=== PATIENT | female | born 1995 | race African-American/Black ===

== ENCOUNTER 2019-09-21 12:23 | Emergency (ER) | payer MEDICAID ==
[~2019-09-21] VITALS: Ht 152.4 cm; Wt 55.5 kg
[2019-09-21 12:40] VITALS: BP 116/58; TEMP 97.7
[2019-09-21 13:55] LABS: COLLECTION METHOD CLEAN CATCH
[2019-09-21 14:11] LABS: MUCOUS Present /lpf; PH 7 (5-8); SQUAMOUS EPITHELIAL 0-2 /hpf; URINE APPEARANCE Clear; URINE BACTERIA Rare /hpf; URINE BILIRUBIN Negative (NEGATIVE); URINE BLOOD Negative (NEGATIVE); URINE COLOR Yellow; URINE GLUCOSE Negative (NEGATIVE); URINE KETONE Trace (NEGATIVE); URINE LEUKOCYTE ESTERASE Negative (NEGATIVE); URINE NITRATE Negative (NEGATIVE); URINE PROTEIN(semi-quant) Negative (NEGATIVE); URINE RBC 0-2 /hpf; URINE UROBILINOGEN >=4.0 mg/dL (NEGATIVE)
[2019-09-21] MEDS ORDERED: ZOFRAN ODT4 MG PO (14:30)
[2019-09-21 15:05] VITALS: PULSE 75
== END 2019-09-21 15:09 | disposition home or self-care (01) ==
LOC: COL.ER 12:23
PROVIDERS: Physician Assistant
DX: O21.2 Late vomiting of pregnancy (principal); O26.892 Other specified pregnancy related conditions, second trimester; R19.7 Diarrhea, unspecified; Z3A.17 17 weeks gestation of pregnancy
CPT/HCPCS: J2405; J7030

== ENCOUNTER 2019-10-16 07:19 | Emergency (ER) | payer MEDICAID ==
[~2019-10-16] VITALS: Ht 152.4 cm; Wt 55.5 kg
[~2019-10-16 07:19] MED LIST: ZOFRAN ODT4 MG PO
[2019-10-16 07:28] VITALS: TEMP 99
[2019-10-16 08:08] LABS: BASO % 0.5 % (0.0-2.0); GRAN # 3.8 (1.4-6.5); GRAN % 70.1 % (42.2-75.2); LYMPH # 1.3 (1.2-3.4); LYMPH % 23.2 % (20.0-51.0); MEAN CELL VOLUME 89 fl (80.0-100.0); MEAN CORPUSCULAR HGB CONC 33 g/dl (33.0-37.0); MEAN PLATELET VOLUME 11.4 fl (7.4-10.4); MONO # 0.3 (0.1-0.6); PLATELET COUNT 263 K/mm3 (130-400); PROTHROMBIN TIME 11.8 SECONDS (9.7-12.8); RED BLOOD COUNT 3.16 M/mm3 (4.10-5.30); REDCELL DISTRIBUTION WIDTH-CV 13.8 % (11.5-14.5)
[2019-10-16 08:09] LABS: HEMATOCRIT 28.2 % (37.0-47.0); HEMOGLOBIN 9.2 g/dl (12.5-16.0); MEAN CORPUSCULAR HEMOGLOBIN 29 pg (27.0-31.0)
[2019-10-16 08:11] LABS: PARTIAL THROMBOPLASTIN TIME 29.1 SECONDS (26.0-37.0)
[2019-10-16 08:18] LABS: ALBUMIN 3.2 gm/dL (3.5-5.0); BILIRUBIN,TOTAL 0.8 mg/dL (0.0-1.0); CALCIUM 8.4 mg/dL (8.4-10.2); CREATININE, serum 0.62 (0.52-1.25); POTASSIUM 3.3 mmol/L (3.4-5.0); TOTAL PROTEIN 6.5 gm/dL (6.4-8.2)
[2019-10-16 08:39] LABS: COLLECTION METHOD CLEAN CATCH
[2019-10-16 09:03] LABS: MUCOUS Present /lpf; PH 5 (5-8); URINE APPEARANCE Cloudy; URINE BACTERIA Rare /hpf; URINE BILIRUBIN Negative (NEGATIVE); URINE BLOOD 1+ (NEGATIVE); URINE COLOR Amber; URINE GLUCOSE Negative (NEGATIVE); URINE KETONE Negative (NEGATIVE); URINE LEUKOCYTE ESTERASE Negative (NEGATIVE); URINE NITRATE Negative (NEGATIVE); URINE PROTEIN(semi-quant) 2+ (NEGATIVE); URINE UROBILINOGEN Negative (NEGATIVE)
[2019-10-16 11:05] VITALS: BP 140/87; PULSE 56
== END 2019-10-16 11:05 | disposition home or self-care (01) ==
LOC: COL.ER 07:19
PROVIDERS: Emergency Medicine
DX: O13.2 Gestational [pregnancy-induced] hypertension without significant proteinuria, second trimester (principal); O26.892 Other specified pregnancy related conditions, second trimester; R07.89 Other chest pain; E87.6 Hypokalemia; Z3A.21 21 weeks gestation of pregnancy
CPT/HCPCS: J3475; J7030